=== PATIENT | male | born 1970 | race American Indian/Alaskan Native ===

== ENCOUNTER 2020-05-02 14:10 | Emergency (ER) | payer BC ==
[2020-05-02] MEDS ORDERED: ONDANSETRON 4 MG/2 ML INJ IV ONE (14:18)
[2020-05-02] MEDS ORDERED: HYDROmorphone 1 MG/1 ML INJ IV ONE (14:18)
[2020-05-02] MEDS ORDERED: SODIUM CHLORIDE 0.9% 1000 ML 1,000 ML IV ONE (14:18)
[2020-05-02] MEDS ORDERED: DIPHtheria,PERTUSSIS(ACELL),TETANUS VACCINE/PF 0.5 ML VIAL IM ONE (14:18)
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
[2020-05-02] MEDS ORDERED: LISINOPRIL 20 MG TAB PO ONE (17:23)
[2020-05-02] MEDS ORDERED: amLODIPine 5 MG TAB PO ONE (17:23)
[2020-05-02 17:40] VITALS: BP 201/137
[2020-05-02] MEDS ORDERED: BACITRACIN/POLYMYXIN B OINT 28.35 GM TP ONE (18:00)
== END 2020-05-02 17:52 | disposition other institution (70) ==
LOC: ED 14:10
DX: T20.10XA Burn of first degree of head, face, and neck, unspecified site, initial encounter (principal); T23.101A Burn of first degree of right hand, unspecified site, initial encounter; T23.102A Burn of first degree of left hand, unspecified site, initial encounter; I10 Essential (primary) hypertension; T65.91XA Toxic effect of unspecified substance, accidental (unintentional), initial encounter; Y92.89 Other specified places as the place of occurrence of the external cause
CPT/HCPCS: 16000; 90471; 90715; 96361; 96374; 96375; 99291; J1170; J2405; J7030